=== PATIENT | male | born 1970 | race American Indian/Alaskan Native ===

== ENCOUNTER 2016-07-24 11:27 | Emergency (ER) | payer SELFPAY ==
[2016-07-24 12:07] VITALS: BP 124/96
--- NOTE | 2016-07-24 13:07 | Emergency Department Report ---
ED Back Pain/Injury HPI - General Chief Complaint: Back Pain/Injury Stated Complaint: LOWER BACK PAIN Time Seen by Provider: 07/24/16 12:58 Source: patient Limitations: No Limitations - History of Present Illness Initial Comments: 46-year-old -[place] male with no past medical history no known drug allergies no medications come in for complaint of lower back pain for 2 weeks. 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 He does admit that he is tried [id number] back relief without much relief. He reports that he is a smoker. He denies any trauma he denies any bowel or urinary incontinence. MD Complaint: back pain -: Gradual, week(s) (2) Similar Symptoms Previously: No Place: work - Related Data Previous Rx's Medication Instructions Recorded Last Taken Type Naproxen [Naprosyn TAB] 500 mg PO BID #30 tablet 07/24/16 Unknown Rx methOCARBAMOL [Robaxin TAB] 500 mg PO BID #30 tab 07/24/16 Unknown Rx Allergies Allergy/AdvReac Type Severity Reaction Status Date / Time No Known Allergies Allergy Unverified 07/24/16 12:03 ED Review of Systems ROS: Stated complaint: LOWER BACK PAIN Other details as noted in HPI Eyes: denies: eye pain, eye discharge, vision change ENT: denies: ear pain, throat pain Respiratory: denies: cough, shortness of breath, wheezing Cardiovascular: denies: chest pain, palpitations Endocrine: no symptoms reported Gastrointestinal: denies: abdominal pain, nausea, diarrhea Genitourinary: denies: urgency, dysuria Musculoskeletal: back pain, myalgia. denies: joint swelling, arthralgia Skin: denies: rash, lesions Neurological: denies: headache, weakness, paresthesias ED Past Medical Hx - Past Medical History Previous Medical History?: No - Surgical History Past Surgical History?: No - Social History Smoking Status: Current Every Day Smoker Substance Use Type: Alcohol, Marijuana - Medications Home Medications: Home Medications Medication Instructions Recorded Confirmed Last Taken Type Naproxen [Naprosyn TAB] 500 mg PO BID #30 tablet 07/24/16 Unknown Rx methOCARBAMOL [Robaxin TAB] 500 mg PO BID #30 tab 07/24/16 Unknown Rx ED Physical Exam - General Limitations: No Limitations General appearance: alert, in no apparent distress - Head Head exam: Present: atraumatic, normocephalic - Eye Eye exam: Present: normal appearance - ENT ENT exam: Present: normal exam, mucous membranes moist - Cardiovascular Cardiovascular Exam: Present: regular rate, normal rhythm, normal heart sounds - GI/Abdominal GI/Abdominal exam: Present: soft. Absent: distended, tenderness - Extremities Exam Extremities exam: Present: normal inspection, full ROM - Back Exam Back exam: Present: normal inspection, full ROM, tenderness, muscle spasm - Neurological Exam Neurological exam: Present: alert, oriented X3 - Psychiatric Psychiatric exam: Present: normal affect, normal mood - Skin Skin exam: Present: warm, dry, intact ED Course Vital Signs 07/24/16 07/24/16 12:04 13:47 Temperature 98.4 F Pulse Rate 75 Respiratory 20 18 Rate Blood Pressure 124/96 O2 Sat by Pulse 100 Oximetry - Reevaluation(s) Reevaluation #1: 07/24/16 14:36 H reports pain is improved. ED Medical Decision Making - Medical Decision Making Patient has been evaluated by this provider in fast track. Discussed with patient we will give him a Toradol injection for pain management. Also discussed with patient that we will discharge him on Robaxin and naproxen for pain management. Highly recommend patient to follow up with her primary care provider in 3-5 days if pain persists or gets worse. She verbalized understanding Critical care attestation.: If time is entered above; I have spent that time in minutes in the direct care of this critically ill patient, excluding procedure time. ED Disposition Clinical Impression: Back pain Disposition: DISCHARGED TO HOME OR SELFCARE Is pt being admited?: No Does the pt Need Aspirin: No Condition: Stable Instructions: Acute Low Back Pain (ED) Additional Instructions: Please take pain medication and muscle relaxant as prescribed follow up with primary care provider for further evaluation. Prescriptions: methOCARBAMOL [Robaxin TAB] 500 mg PO BID #30 tab Naproxen [Naprosyn TAB] 500 mg PO BID #30 tablet Referrals: PRIMARY CARE, [Primary Care Provider] - 3-5 Days Forms: Work/School Release Form(ED)
[2016-07-24] MEDS ORDERED: CORDARONE IV ONE (13:27)
[2016-07-24] MEDS ORDERED: TORADOL IM ONE (13:28)
== END 2016-07-24 14:31 | disposition home or self-care (01) ==
LOC: ED 11:27
DX: M54.5 Low back pain (principal); M79.1 Myalgia; F12.10 Cannabis abuse, uncomplicated; F17.200 Nicotine dependence, unspecified, uncomplicated
CPT/HCPCS: 96372; 99282; J1885; J0282